=== PATIENT | female | born 1985 | race Caucasian/White ===

== ENCOUNTER 2018-11-22 09:17 | Emergency (ER) | payer OTHER ==
[2018-11-22 10:01] VITALS: BP 102/72
--- NOTE | 2018-11-22 11:14 | ED ---
GI/ HPI - HPI Summary HPI Summary: Patient presents with BRB per rectum this morning. She is undergoing fertility treatments with [facility]. Had an egg harvested from her left ovary on Saturday and an embryo transferred on . Her constipation started on and has persisted since. She describes this as acute straining which started on and she was eventually able to pass a stool that was hard and painful per rectum only. She noticed some blood that day. She started Colace and had a softer bowel movement the following day without difficulty or blood. She has not had a BM since but this morning she attempted to move her bowels again as she felt like she needed to but was only able to pass blood. She has not been actively bleeding from her rectum, only noticed with straining to move her bowels. She also denies any tearing sensations. Additionally, she was concerned she may be passing blood from her vagina but does not believe this is the case. She inserts hormone suppositories and has not had any difficulty with that process since. She admits to a history of IBS that presents as alternating diarrhea and constipation, specifically around her menstrual cycle. She admits she probably should've started stool softener sooner to prevent this. Denies nausea, vomiting, diarrhea, fever, chills. She is eating and drinking w/o difficulty and denies h/o ab surgery, ovarian cyst, IBD, bowel obstruction. She had some left lower quadrant discomfort after the egg was harvested on Saturday and notices that this has been intermittently persistent but not worse. - History of Current Complaint Chief Complaint: UCGI Time Seen by Provider: 11/22/18 09:33 Stated Complaint: CONSTIPATION/BLEEDING Hx Obtained From: Patient, Family/Ems Instructor - male partner Hx Last Menstrual Period: 11/05/2018 Pain Intensity: 0 - Allergy/Home Medications Allergies/Adverse Reactions: Allergies Allergy/AdvReac Type Severity Reaction Status Date / Time No Known Allergies Allergy Verified 11/22/18 09:55 Home Medications: Home Medications Aspirin [Ecotrin Low Strength] 81 mg PO DAILY 11/22/18 [History Confirmed ] Docusate Sodium [Colace] 100 mg PO DAILY 11/22/18 [History Confirmed 11/22/18] Estradiol [Estrace] 2 mg PO DAILY 11/22/18 [History Confirmed 11/22/18] Naltrexone TAB* 50 mg PO DAILY 11/22/18 [History Confirmed 11/22/18] Progesterone SUPP (NF) [Endometrin SUPP (NF)] 100 mg VA BID 11/22/18 [History Confirmed 11/22/18] Progesterone* [Progesterone in Oil*] 50 mg IM DAILY 11/22/18 [History Confirmed 11/22/18] Psyllium Husk [Metamucil] 0.52 gm PO DAILY 11/22/18 [History Confirmed 11/22/18] Tacrolimus [Tacrolimus 0.5 MG-] 0.5 mg PO DAILY 11/22/18 [History Confirmed ] predniSONE [Prednisone 5 MG TAB] 5 mg PO DAILY 11/22/18 [History Confirmed 11/22] PMH/Surg Hx/FS Hx/Imm Hx Previously Healthy: Yes Endocrine/Hematology History: Denies: Hx Anticoagulant Therapy - takes ASA 81mg daily to aid in implantation, Hx Unexplained Bleeding History: Reports: Other Problems/Disorders - IBS; seeing fertility specialist at [facility] 11/2018 Sensory History: Reports: Hx Contacts or Glasses Opthamlomology History: Reports: Hx Contacts or Glasses - Surgical History Surgery Procedure, Year, and Place: wisdom and impacted teeth Infectious Disease History: No Infectious Disease History: Denies: Traveled Outside the in Last 30 Days - Social History Lives: With Family Alcohol Use: None Hx Substance Use: No Substance Use Type: Reports: None Hx Tobacco Use: No Smoking Status (MU): Never Smoked Tobacco Review of Systems Constitutional: Negative Negative: Fever, Chills, Fatigue Eyes: Negative ENT: Negative Cardiovascular: Negative Respiratory: Negative Positive: Abdominal Pain - LLQ. Negative: Vomiting, Diarrhea, Nausea Positive: see HPI Musculoskeletal: Negative Skin: Negative Neurological: Negative Psychological: Normal All Other Systems Reviewed And Are Negative: Yes Physical Exam Triage Information Reviewed: Yes Vital Signs On Initial Exam: Initial Vitals Temp Pulse Resp BP Pulse Ox 99.7 F 75 18 102/72 100 11/22/18 09:58 11/22/18 09:58 11/22/18 09:58 11/22/18 09:58 11/22/18 09:58 Vital Signs Reviewed: Yes Appearance: Positive: Well-Appearing, No Pain Distress, Well-Nourished Skin: Positive: Warm, Skin Color Reflects Adequate Perfusion, Dry - nickel sized areas of healing ecchymsis over ab (pt has been injecting herself with hormones) Head/Face: Positive: Normal Head/Face Inspection Eyes: Positive: Normal, EOMI, Conjunctiva Clear - anicteric sclera ENT: Positive: Pharynx normal - mucosa moist Respiratory/Lung Sounds: Positive: Clear to Auscultation, Breath Sounds Present Cardiovascular: Positive: Normal, RRR Abdomen Description: Positive: No Organomegaly, Soft, Other: - LLQ w/ mild TTP - no rebounding; posterior rectum TTP over what appears to be an inflammed/ excoriated hemorrhoid - no active bleeding but has scabbing here. Negative: CVA Tenderness (R), CVA Tenderness (L), Distended, Guarding, Hernia @, Hepatomegaly, McBurney's Point Tenderness, Peritoneal Signs, Pulsatile Mass Bowel Sounds: Positive: Present Pelvic Exam: Positive: External Exam Normal, Other - blue cream d/c (pt reports this is from suppository) - cervix not identified (pt admits she's "tipped"); manual exam deferred. Negative: Active Bleeding Musculoskeletal: Positive: Normal, Strength/ROM Intact Neurological: Positive: Normal, Sensory/Motor Intact, Alert, Oriented to Person Place, Time, CN Intact II-III Psychiatric: Positive: Normal - Jimmy Coma Scale Best Eye Response: 4 - Spontaneous Best Motor Response: 6 - Obeys Commands Best Verbal Response: 5 - Oriented Coma Scale Total: 15 Diagnostics - Vital Signs Vital Signs Temp Pulse Resp BP Pulse Ox 11/22/18 09:58 99.7 F 75 18 102/72 100 - Laboratory Lab Statement: Any lab studies that have been ordered have been reviewed, and results considered in the medical decision making process. GIGU Course/Dx - Course Course Of Treatment: Placed call to Dr. Ruby at 11:20am ([facility]) who performed embryo transfer Thurs - requesting guidance on LLQ discomfort (normal or requires manual exam/imaging?) and guidance on safe medications to tx constipation given her status. Second call with message placed with Dr. Ruby' s voicemail at 12:00pm. With no return call from Dr. Ruby after placing 2 messages and waiting 1+ hours as well as speaking with Dr. Choudhary, will recommend high fiber diet with plenty of hydration, rectal stimulation with lubricant and/or glycerin suppository as needed. A warm water enema may be a safe possibility beyond this however encouraged patient to contact [facility] today for confirmation on tx and advice if sx persist. She may also go to the ED if danger s/sx present. Pt and partner agree w/ plan. NOTE: no danger s/sx here today based on HPI and PE. - Diagnoses Provider Diagnoses: Hemorrhoid, Patient undergoing in vitro fertilization, Constipation Discharge - Sign-Out/Discharge Documenting (check all that apply): Patient Departure All imaging exams completed and their final reports reviewed: No Studies - Discharge Plan Condition: Stable Disposition: HOME Patient Education Materials: Constipation (ED), Hemorrhoids (ED) Referrals: Nate CADE,Zachary Simms [Medical Doctor] - Additional Instructions: Increase fiber and water intake - specifically try watermelon, pears, prunes, raspberries, etc You may also try rectal stimulation with a gloved, lubricated finger (ie, vasoline, etc) Furthermore, you may try glycerin suppository Beyond these recommendations, follow-up with [facility] - call today to update symptoms, seek guidance, etc *If you develop worsening of symptoms, go to the ED - Billing Disposition and Condition Condition: STABLE Disposition: Home
== END 2018-11-22 12:40 | disposition home or self-care (01) ==
LOC: UCEAST 09:17
DX: K64.9 Unspecified hemorrhoids (principal); K59.00 Constipation, unspecified; Z79.82 Long term (current) use of aspirin
CPT/HCPCS: 99201; G0463

== ENCOUNTER 2018-12-18 16:12 | Emergency (ER) | payer OTHER ==
--- NOTE | 2018-12-18 18:19 | UC ---
Lower Extremity/Ankle HPI - HPI Summary HPI Summary: 33 yo female trying to get had laproscopic surgery yesterday told her anesthesiologist about 4 mos hx of intermittent left calf "vibrating" and left lower ext swelling he started her on lovenox and told her to get it checked out - History of Current Complaint Chief Complaint: UCLowerExtremity Stated Complaint: L LEG SWELLING Time Seen by Provider: 12/18/18 18:04 Hx Obtained From: Patient Hx Last Menstrual Period: ectopic removed yesterday Onset/Duration: Gradual Onset, Lasting Weeks Severity Initially: Mild Severity Currently: None Pain Intensity: 0 Pain Scale Used: 0-10 Numeric Aggravating Factor(s): Nothing Alleviating Factor(s): Other - spomntaneously resolves Able to Bear Weight: Yes Legs: 1 - area of vibration - Allergies/Home Medications Allergies/Adverse Reactions: Allergies Allergy/AdvReac Type Severity Reaction Status Date / Time No Known Allergies Allergy Verified 12/18/18 16:50 Home Medications: Home Medications Enoxaparin(*) [Lovenox(*)] 30 mg SUBCUT DAILY 12/18/18 [History Confirmed ] PMH/Surg Hx/FS Hx/Imm Hx Previously Healthy: Yes Other History Of: Negative For: Anticoagulant Therapy - takes ASA 81mg daily to aid in implantation - Surgical History Surgical History: Yes Surgery Procedure, Year, and Place: wisdom and impacted teeth - Family History Known Family History: Positive: Hypertension, Other - no hx dvt - Social History Alcohol Use: None Substance Use Type: None Smoking Status (MU): Never Smoked Tobacco Review of Systems All Other Systems Reviewed And Are Negative: Yes Constitutional: Positive: Negative Skin: Positive: Negative Eyes: Positive: Negative ENT: Positive: Negative Respiratory: Positive: Negative Cardiovascular: Positive: Negative Gastrointestinal: Positive: Negative Genitourinary: Positive: Negative Motor: Positive: Negative Musculoskeletal: Positive: Edema - intermittent LLE Neurological: Positive: Negative Psychological: Positive: Negative Physical Exam Triage Information Reviewed: Yes Appearance: Well-Appearing, No Pain Distress, Well-Nourished Vital Signs: Initial Vital Signs Temp 98.8 F 12/18/18 16:45 Pulse 66 12/18/18 16:45 Resp 16 12/18/18 16:45 BP 100/55 12/18/18 16:45 Pulse Ox 99 12/18/18 16:45 Vital Signs Reviewed: Yes Eyes: Positive: Conjunctiva Clear ENT: Positive: Hearing grossly normal. Negative: Nasal congestion, Nasal drainage, Trismus, Muffled voice, Hoarse voice Neck: Positive: Supple, Nontender, No Lymphadenopathy Respiratory: Positive: Lungs clear, Normal breath sounds, No respiratory distress Cardiovascular: Positive: RRR, No Murmur Musculoskeletal: Positive: ROM Intact, No Edema, Other: - tr pretibial edema bilat Neurological: Positive: Alert Psychological Exam: Normal Skin Exam: Normal Diagnostics - Radiology No standard instances Radiology Interpretation Completed By: Radiologist Summary of Radiographic Findings: no dvt Lower Extremity Course/Dx - Differential Dx/Diagnosis Provider Diagnosis: Leg edema Discharge - Sign-Out/Discharge Documenting (check all that apply): Patient Departure All imaging exams completed and their final reports reviewed: Yes - Discharge Plan Condition: Stable Disposition: HOME Patient Education Materials: Leg Edema (ED) Referrals: No Primary Care Phys,NOPCP [Primary Care Provider] - Additional Instructions: I don't know how to explain your left calf symptoms you can stop the lovenox I suggest you see your MD when you return home - Billing Disposition and Condition Condition: STABLE Disposition: Home
[2018-12-18 19:07] VITALS: BP 103/58
== END 2018-12-18 19:05 | disposition home or self-care (01) ==
LOC: UCEAST 16:12
DX: R60.9 Edema, unspecified (principal)
CPT/HCPCS: 99211; G0463

== ENCOUNTER 2021-05-25 18:17 | Inpatient (IN) ==
[2021-05-25 19:07] LABS: Urine Appearance Cloudy; Urine Bilirubin Negative (Negative); Urine Blood 1+ (Negative); Urine Color Yellow; Urine Glucose Negative (Negative); Urine Ketones 1+ (Negative); Urine Nitrite Negative (Negative); Urine Protein Negative (Negative); Urine Specific Gravity 1.015 (1.002-1.030); Urine Urobilinogen Negative (Negative)
[2021-05-25 19:24] LABS: Urine Bacteria 1+ (Absent); Urine Benzodiazepine Screen None Detected (None Detect); Urine Cannabinoids Screen None Detected (None Detect); Urine Opiates Screen None Detected (None Detect); Urine Red Blood Cell Trace(0-2/hpf) (Absent); Urine Squamous Epithelial Cell Present (Absent); Urine White Blood Cell Trace(0-5/hpf) (Absent)
[2021-05-25] MEDS ORDERED: Lactated Ringers 1000 ml BAG 1,000 ML IV ONE (20:14)
[2021-05-25] MEDS ORDERED: Buffered Lidocaine 1% SYRIN 1 ml INTRADERM ONE (20:14)
[2021-05-25] MEDS ORDERED: Dinoprostone 10 MG VAG.SUPP VAGINAL ONE (20:19)
[2021-05-25] MEDS ORDERED: Lactated Ringers 1000 ml BAG 1,000 ML IV SCH (21:00)
[2021-05-25] MEDS ORDERED: Nalbuphine 10 MG/ML 1 ML VIAL IV ONE (23:32)
[2021-05-25] MEDS ORDERED: Promethazine INJ(RESTRICTED) 25 MG/ML 1 ml VIAL IM ONE (23:34)
[2021-05-26] MEDS ORDERED: Lidocaine 4% TOPICAL 50 ML TOP.SOLN ONE (09:25)
[2021-05-26] MEDS ORDERED: Ondansetron ODT 4 mg TAB 4 MG TAB SL PRN (09:26)
[2021-05-26] MEDS ORDERED: Lidocaine 2% JELLY 6 ML TOPICAL ONE (10:30)
[2021-05-26] MEDS ORDERED: Penicillin G Potassium IV 5,000,000 UNITS in NS 0.9% 100 ml BAG 100 ML IVPB ONE (11:12)
[2021-05-26] MEDS ORDERED: OBEPIDURAL 250 ML EPIDURAL ONE (11:43)
[2021-05-26 11:53] LABS: ABS Lymphocytes 0.6 10^3/ul (1.0-4.8); ABS Monocytes 0.5 10^3/ul (0-0.8); ABS Neutrophils 7.5 10^3/ul (1.5-7.7); Eosinophil % 0.1 %; Hematocrit 31 % (35-47); Hemoglobin 10.9 g/dL (12.0-16.0); Lymphocyte % 7.1 %; Mean Corpuscular HGB Conc 35 g/dL (31-36); Mean Corpuscular Hemoglobin 32 pg (27-31); Mean Corpuscular Volume 92 fL (80-97); Mean Platelet Volume 9.7 fL (7.4-10.4); Platelet Count 152 10^3/uL (150-450); Red Blood Count 3.42 10^6 /uL (3.70-4.87); Red Cell Distribution Width 21 % (10-15); White Blood Count 8.6 10^3/uL (3.5-10.8)
[2021-05-26 13:26] LABS: Urine Appearance Clear; Urine Bilirubin Negative (Negative); Urine Blood Negative (Negative); Urine Color Yellow; Urine Glucose Negative (Negative); Urine Ketones 2+ (Negative); Urine Nitrite Negative (Negative); Urine Protein Negative (Negative); Urine Specific Gravity 1.015 (1.002-1.030); Urine Urobilinogen Negative (Negative)
[2021-05-26] MEDS: Penicillin G Potassium IV 3,000,000 UNITS in NS 0.9% 100 ml BAG 100 ML IVPB SCH ×2 (16:36→20:35)
[2021-05-26] MEDS: Oxytocin in LR 20 UNITS/1,000 ML BAG IVPB SCH (17:21)
[2021-05-26] MEDS ORDERED: Lactated Ringers 1000 ml BAG 1,000 ML IV ONE (19:27)
[2021-05-26] MEDS ORDERED: Lactated Ringers 1000 ml BAG 500 ML IV PRN ×2 (19:27)
[2021-05-26] MEDS ORDERED: Phenylephrine 40 mcg/mL 10mL (400mcg) SYRINGE IV PUSH PRN ×2 (19:27)
[2021-05-26] MEDS ORDERED: Sodium Citrate/Citric Acid LIQ 15 ML UDC PO PRN (19:27)
[2021-05-26] MEDS ORDERED: OBEPIDURAL 250 ML EPIDURAL SCH (20:00)
[2021-05-26] MEDS ORDERED: Lactated Ringers 1000 ml BAG 1,000 ML IV SCH ×2 (20:00)
[2021-05-27] MEDS: Penicillin G Potassium IV 3,000,000 UNITS in NS 0.9% 100 ml BAG 100 ML IVPB SCH ×4 (00:31→12:46)
[2021-05-27] MEDS ORDERED: Bupivacaine 0.25% SDV PF 10 ML VIAL INJ ONE (01:14)
[2021-05-27] MEDS ORDERED: fentaNYL 100 mcg/2 ml 50 MCG/ML VIAL ONE ×3 (01:14→14:39)
[2021-05-27] MEDS: Oxytocin in LR 20 UNITS/1,000 ML BAG IVPB SCH (11:25)
[2021-05-27] MEDS ORDERED: Lidocaine 2% w/ EPI 1:200,000 MPF 20 ML SDV VIAL ONE ×2 (12:16→14:39)
[2021-05-27] MEDS ORDERED: Sodium Citrate/Citric Acid LIQ 15 ML UDC ONE (14:40)
[2021-05-27] MEDS ORDERED: ceFOXitin 2 GM IVPREMIX 2 GM/50 ML BAG ONE (14:41)
[2021-05-27] MEDS ORDERED: ceFOXitin 2 GM IVPREMIX 2 GM/50 ML BAG IVPB ONE (14:45)
[2021-05-27] MEDS ORDERED: Sodium Citrate/Citric Acid LIQ 15 ML UDC PO ONE (14:46)
[2021-05-27] MEDS ORDERED: Naloxone 4 mg VIAL (10 ml) 2 MG in NS 0.9% 250 ml 250 ML IV PRN (15:18)
[2021-05-27] MEDS ORDERED: DiMENhydriNATE IV 50 mg/ml 1 ml VIAL IV PUSH PRN (15:18)
[2021-05-27] MEDS ORDERED: Ondansetron 4 mg VIAL 2 MG/ML 2 ml VIAL IV PRN (15:18)
[2021-05-27] MEDS ORDERED: Metoclopramide 5 MG/ML VIAL (10 mg) IV PRN (15:18)
[2021-05-27] MEDS ORDERED: Naloxone 0.4 mg VIAL 0.4 mg/ml 1 ml VIAL IV PRN (15:18)
[2021-05-27] MEDS ORDERED: Carboprost Tromethamine 250 mcg 1 ml VIAL ONE (15:24)
[2021-05-27] MEDS ORDERED: Morphine PF AMP (0.5MG/ML) 5 MG/10 ML AMP ONE (15:26)
[2021-05-27] MEDS ORDERED: Ondansetron 4 mg VIAL 2 MG/ML 2 ml VIAL ONE (15:32)
[2021-05-27] MEDS ORDERED: Dexamethasone IV 4 MG/ML VIAL 1 ml VIAL ONE (15:32)
[2021-05-27] MEDS ORDERED: Oxytocin 10 UNITS/ML 1 ML VIAL ONE (15:32)
[2021-05-27] MEDS ORDERED: Witch Hazel PAD JAR TOPICAL PRN (16:15)
[2021-05-27] MEDS ORDERED: Glycerin ADULT 2.4 gm SUPP PR PRN (16:15)
[2021-05-27] MEDS ORDERED: Dibucaine 1% OINT 28.35 GM TUBE PR PRN (16:15)
[2021-05-27] MEDS ORDERED: Oxytocin in LR 20 UNITS/1,000 ML BAG IVPB SCH (17:00)
[2021-05-27] MEDS ORDERED: Lactated Ringers 1000 ml BAG 1,000 ML IV SCH (17:00)
[2021-05-27] MEDS ORDERED: Carboprost Tromethamine 250 mcg 1 ml VIAL IM ONE (17:20)
[2021-05-28 09:24] LABS: ABS Lymphocytes 1.1 10^3/ul (1.0-4.8); ABS Monocytes 0.6 10^3/ul (0-0.8); ABS Neutrophils 8.1 10^3/ul (1.5-7.7); Eosinophil % 0.2 %; Hematocrit 24 % (35-47); Hemoglobin 8.3 g/dL (12.0-16.0); Mean Corpuscular HGB Conc 34 g/dL (31-36); Mean Corpuscular Hemoglobin 32 pg (27-31); Mean Corpuscular Volume 91 fL (80-97); Mean Platelet Volume 9.4 fL (7.4-10.4); Platelet Count 122 10^3/uL (150-450); Red Blood Count 2.64 10^6 /uL (3.70-4.87); Red Cell Distribution Width 20 % (10-15); White Blood Count 9.8 10^3/uL (3.5-10.8)
[2021-05-28] MEDS ORDERED: Ammonia Inhalant 1 EA AMP ONE (13:41)
[2021-05-29] MEDS ORDERED: NS 0.9% IVPB ONE (13:00)
[2021-05-29] MEDS ORDERED: FERUMOXYTOL IVPB ONE (13:00)
[2021-05-30 10:29] VITALS: BP 106/69
== END 2021-05-30 17:00 | disposition home or self-care (01) | DRG 540 ==
LOC: MCHOBOUT 18:17 → MCHOB 20:16
PROVIDERS: ADMIT Midwife; ATTEND Obstetrics & Gynecology

== ENCOUNTER 2021-06-05 15:45 | Observation (INO) ==
[2021-06-05] MEDS ORDERED: fentaNYL 100 mcg/2 ml 50 MCG/ML VIAL IV PRN ×2 (17:04→20:41)
[2021-06-05] MEDS ORDERED: Famotidine IV 10 MG/ML 2 ml VIAL (20 mg) IV ONE (17:04)
[2021-06-05] MEDS ORDERED: DiMENhydriNATE IV 50 mg/ml 1 ml VIAL IV PUSH PRN ×2 (17:04→20:41)
[2021-06-05] MEDS ORDERED: Ondansetron 4 mg VIAL 2 MG/ML 2 ml VIAL IV PRN ×2 (17:04→20:41)
[2021-06-05] MEDS ORDERED: HYDROcodone/ACETAMIN 5/325 mg TAB PO PRN ×2 (17:04→20:41)
[2021-06-05] MEDS ORDERED: Buffered Lidocaine 1% SYRIN 1 ml INTRADERM ONE (17:04)
[2021-06-05] MEDS ORDERED: Naloxone 0.4 mg VIAL 0.4 mg/ml 1 ml VIAL IV PRN ×2 (17:04→20:41)
[2021-06-05] MEDS ORDERED: fentaNYL 100 mcg/2 ml 50 MCG/ML VIAL ONE (17:32)
[2021-06-05] MEDS ORDERED: Dexamethasone IV 4 MG/ML VIAL 1 ml VIAL ONE (17:32)
[2021-06-05] MEDS ORDERED: Midazolam 2 mg/2 ml VIAL 1 mg/ml 2 ml VIAL (2 mg) ONE (17:32)
[2021-06-05] MEDS ORDERED: Lidocaine 2% PF 5 ML VIAL ONE (17:32)
[2021-06-05] MEDS ORDERED: Propofol 10 MG/ML 20 ML BTL ONE (17:32)
[2021-06-05] MEDS ORDERED: Ondansetron 4 mg VIAL 2 MG/ML 2 ml VIAL ONE (17:32)
[2021-06-05] MEDS ORDERED: Lactated Ringers 1000 ml BAG 1,000 ML IV SCH (18:00)
[2021-06-06 06:37] LABS: ABS Lymphocytes 0.8 10^3/ul (1.0-4.8); ABS Monocytes 0.4 10^3/ul (0-0.8); ABS Neutrophils 5.6 10^3/ul (1.5-7.7); Eosinophil % 0.1 %; Hematocrit 27 % (35-47); Hemoglobin 9.1 g/dL (12.0-16.0); Lymphocyte % 11.5 %; Mean Corpuscular HGB Conc 34 g/dL (31-36); Mean Corpuscular Hemoglobin 32 pg (27-31); Mean Corpuscular Volume 95 fL (80-97); Mean Platelet Volume 6.9 fL (7.4-10.4); Platelet Count 252 10^3/uL (150-450); Red Blood Count 2.88 10^6 /uL (3.70-4.87); Red Cell Distribution Width 21 % (10-15); White Blood Count 6.8 10^3/uL (3.5-10.8)
[2021-06-06 09:16] VITALS: BP 112/67
[2021-06-06] MEDS ORDERED: Lidocaine 1% VIAL 10 MG/ML VIAL ONE (11:15)
== END 2021-06-06 14:23 | disposition home or self-care (01) ==
LOC: MCHOB 16:00 → INTOOBSV 20:40 → MCHOB 20:40
PROVIDERS: ADMIT Obstetrics & Gynecology; ATTEND Obstetrics & Gynecology
PROC: O.GYD&C (2021-06-05 16:00)